=== PATIENT | female | born 1945 | race Caucasian/White ===

== ENCOUNTER 2022-03-07 17:44 | Emergency (ER) | payer MEDICARE ==
[~2022-03-07] VITALS: Ht 160 cm; Wt 65.8 kg
[2022-03-07] MEDS ORDERED: LACTATED RINGER'S 1,000 ML INJ ONE ×3 (18:00→18:30)
[2022-03-07 18:11] LABS: BASOPHILS % 0.2 % (0.0-1.0); HEMATOCRIT 45.9 % (34.2-44.1); HEMOGLOBIN 13.8 g/dL (12.0-16.0); LYMPHOCYTES # (AUTO) 1.1 (1.0-3.2); LYMPHOCYTES % 6.9 % (18.0-39.1); MEAN CORPUSCULAR HEMOGLOBIN 29.6 pg (28-32); MEAN CORPUSCULAR HGB CONC 30.1 g/dL (31-35); MEAN CORPUSCULAR VOLUME 98.5 fL (81-99); MONOCYTES # (AUTO) 1.1 (0.2-0.8); MONOCYTES % 6.9 % (4.4-11.3); NEUTROPHILS # (AUTO) 13.8 (2.1-6.9); NEUTROPHILS % 85.4 % (38.7-80.0); PLATELET COUNT 473 x10e3/uL (140-360); RED BLOOD COUNT 4.66 x10e6/uL (3.6-5.1); RED CELL DISTRIBUTION WIDTH 13.8 % (11.7-14.4)
[2022-03-07 18:26] LABS: CLARITY,URINE CLEAR (CLEAR); COLOR,URINE YELLOW (YELLOW); KETONES,URINE 2+ (NEGATIVE); LEUKOCYTE ESTERASE ,URINE NEGATIVE (NEGATIVE); NITRITE,URINE NEGATIVE (NEGATIVE); PROTEIN,URINE DIPSTICK TRACE (NEGATIVE); URINE UROBILINOGEN 0.2 mg/dL (0.2 - 1)
[2022-03-07 18:30] LABS: ALBUMIN 3.5 g/dL (3.5-5.0); ALBUMIN/GLOBULIN RATIO 0.7 (0.8-2.0); ANION GAP 43.7 mmol/L (8-16); CALCIUM 10.5 mg/dL (8.4-10.2); CREATININE, SERUM 2.59 mg/dL (0.57-1.11); POTASSIUM 4.7 mmol/L (3.5-5.1)
[2022-03-07 18:35] LABS: BACTERIA,URINE MODERATE /HPF; EPITHELIAL CELLS,URINE RARE /LPF; HYALINE CASTS 0-1 (0-1); RBC,URINE 0-5 /HPF (0-5)
[2022-03-07] MEDS ORDERED: ASPIRIN 300 MG SUPP PR STA (18:44)
[2022-03-07] MEDS ORDERED: INSULIN REGULAR, HUMAN 100 UNIT/1 ML IV ONE (18:45)
[2022-03-07] MEDS ORDERED: NOREPINEPHRINE 8 MG/D5W 250 ML 250 ML IV SCH (19:00)
[2022-03-07] MEDS ORDERED: LACTATED RINGER'S 1,000 ML IV ONE (19:00)
[2022-03-07] MEDS ORDERED: SODIUM CHLORIDE 0.9% 1000ML 1,000 ML ONE (19:14)
[2022-03-07] MEDS ORDERED: INSULIN REGULAR, HUMAN 3ML VL 100 UNIT in SODIUM CHLORIDE 0.9% 100 ML IV SCH ×2 (19:30)
[2022-03-07 19:43] LABS: AMPHETAMINES SCREEN,URINE NEGATIVE (NEGATIVE); BENZODIAZEPINES SCREEN,URINE NEGATIVE (NEGATIVE); PHENCYCLIDINE SCREEN,URINE NEGATIVE (NEGATIVE)
[2022-03-07 19:52] LABS: SALICYLATE < 5.0 mg/dL (0-30)
[2022-03-07 20:45] VITALS: BP 102/73
[2022-03-07 21:05] LABS: ANION GAP 34.7 mmol/L (8-16); CALCIUM 8.6 mg/dL (8.4-10.2); CREATININE, SERUM 2.03 mg/dL (0.57-1.11); POTASSIUM 3.7 mmol/L (3.5-5.1)
[2022-03-07] MEDS ORDERED: Vancomycin IV 1 GM in SODIUM CHLORIDE 0.9% 250ML 250 ML IV STA (21:09)
[2022-03-07 21:30] LABS: ABG HCO3 14 mmol/L (22-26); ABG PCO2 37 mmHg (35-45); ABG PH 7.15 (7.35-7.45); ABG PO2 55 mmHg (80-105); ABG TCO2 15
== END 2022-03-07 23:30 | disposition other institution (70) ==
LOC: ER 17:50
DX: I24.8 Other forms of acute ischemic heart disease (principal); R41.82 Altered mental status, unspecified; E11.10 Type 2 diabetes mellitus with ketoacidosis without coma; I95.9 Hypotension, unspecified; N39.0 Urinary tract infection, site not specified; Z20.822 Contact with and (suspected) exposure to COVID-19
CPT/HCPCS: 36415; 36555; 36600; 51700; 70450; 71045; 80048; 80053; 80307; 80320; 80329 ×2; 81001; 82805; 82948; 83605; 84484; 85025; 87040; 87071; 87086; 87186; 87205; 87400; 99284; J0692; J1817; J3370; J7030; J7050 ×2; J7121; U0002